=== PATIENT | male | born 1975 | race Caucasian/White ===

== ENCOUNTER → 2018-02-07 | Outpatient (CLI) | payer BC ==
[~2018-02-07] MED LIST: AMIT-104 PO; CHOL10005 PO; DICY20TA70 PO; IBUPROFEN; LACT1CAP6 PO; MULT-1335 PO; OMEG-11 PO; PAN20 PO; PANT40TA65 PO; [UNRECOGNIZED DRUG - CODE] PO
--- NOTE | 2018-02-07 15:43 | RADIOLOGY IMAGING REPORT ---
FACILITY: [facility] PATIENT NAME: Vinny Carrasco : 1975 MR: [id number] V: [id number] EXAM DATE: ORDERING PHYSICIAN: DANA GUZMÁN TECHNOLOGIST: [place] [facility] [place] Vinny Carrasco : 1975 Visit/Account:[id number] Date of Sevice: 02/07/2018 TESTICULAR HISTORY: Right scrotal pain and swelling COMPARISON: None. FINDINGS: Testes: The right testicle measures 5.1 x 2.6 x 2.8 cm. The left measures 4.7 x 2.7 x 3.3 cm. Symme tric and unremarkable blood flow documented by color and Duplex Doppler ultrasound. Epididymides: The head epididymis on the right measures 1.4 cm and on the left 1.8 cm. There is a 6. 3 mm cyst in the head of the epididymis on the left Blood flow is unremarkable in each epididymis by color Doppler ultrasound. Hydrocele: Small on the right Varicocele: Possible small varicocele on the right in location of patient's pain IMPRESSION: Small right hydrocele and possible small right varicocele 6.3 mm cyst head of the epididymis on the left Report Dictated By: Diana Hammonds MD at 02/07/2018 3:36 PM Report E-Signed By: Diana Hammonds MD at 02/07/2018 3:38 PM WSN:[email or web address]
== END ==
LOC: US 14:02
PROVIDERS: ATTEND Physician Assistant Medical
DX: N43.3 Hydrocele, unspecified (principal); N50.3 Cyst of epididymis; I86.1 Scrotal varices
CPT/HCPCS: 76870

== ENCOUNTER 2018-03-27 00:39 | Day surgery (SDC) | payer BC ==
[~2018-03-27] VITALS: Ht 180.3 cm; Wt 105.7 kg
[~2018-03-27 00:39] MED LIST changes: +ENZY1CAP3 PO; +MILK140C3 PO; +PSYL283P7 PO; +TURM1TAB PO
[2018-03-27] MEDS ORDERED: ROCURONIUM BROM 10 MG/ML 10 ML ONE (08:24)
[2018-03-27] MEDS ORDERED: fentaNYL CITR 100 MCG/2 ML AMP ONE ×3 (08:24→11:48)
[2018-03-27] MEDS ORDERED: PROPOFOL EMUL(*) 10MG/ML 20 ML 20 ML ONE (08:24)
[2018-03-27] MEDS ORDERED: ONDANSETRON 4 MG/2 ML VIAL ONE (08:24)
[2018-03-27] MEDS ORDERED: LIDOCAINE MPF 1% 5 ML VIAL ONE (08:24)
[2018-03-27] MEDS ORDERED: DEXAMETHASONE SOD PHOS 10MG/ML ONE (08:24)
[2018-03-27] MEDS ORDERED: MIDAZOLAM 2 MG/2 ML VIAL ONE (08:25)
[2018-03-27 08:33] LABS: PLATELET COUNT, AUTOMATED 260 K/uL (150-450)
[2018-03-27 08:40] VITALS: BP 145/89
[2018-03-27] MEDS ORDERED: LIDOCAINE/SOD BICARB 8.4% SYR ID ONE (08:50)
[2018-03-27] MEDS ORDERED: FAMOTIDINE 20 MG TAB PO ONE (08:50)
[2018-03-27] MEDS ORDERED: INDOCYANINE GREEN 25 MG VIAL IVP ONE (08:50)
[2018-03-27] MEDS ORDERED: AMPICILLIN/SULBACT (*) 3 GM VL 3 GM in NS(*) 0.9% 100 ML BAG 100 ML IVPB ONE (08:50)
[2018-03-27] MEDS ORDERED: NORMOSOL R SOLN(*) 1000 ML BAG 1,000 ML IV PRN (08:50)
[2018-03-27] MEDS ORDERED: MIDAZOLAM 2 MG/2 ML VIAL IVP PRN (08:50)
[2018-03-27] MEDS ORDERED: SUGAMMADEX SOD 200 MG/2 ML SDV ONE (09:05)
[2018-03-27] MEDS ORDERED: ROPIVACAINE 0.5% 20 ML VIAL ONE (09:28)
[2018-03-27] MEDS ORDERED: DOCU-416 PO (11:23)
[2018-03-27] MEDS ORDERED: OXYC-854 PO (11:23)
--- NOTE | 2018-03-27 11:28 | Short(Outpt) Discharge Summary ---
Discharge Summary Reason for Hosp/Final Diag: (1) Biliary dyskinesia Status: Chronic Hospital Course & Plan: Robotic justino completed without problems. Departure Discharge to: Home, Self Care Discharge Instructions Home Meds Active Scripts Docusate Sodium (COLACE) 100 Mg Capsule, 1 CAP PO BID, #30 CAP 0 Refills TAKE WITH A FULL GLASS OF WATER Prov:YAYO MAYFIELD MD 03/27/18 Oxycodone Hcl/Acet 5/325 Mg (ENDOCET 5-325 TABLET) 1 Each Tablet, 1-2 TAB PO Q4H Y for PAIN, #30 TAB 0 Refills Prov:YAYO MAYFIELD MD 03/27/18 Reported Medications Psyllium Husk/Aspartame (Metamucil Sugar-Free Powder) 3.4 Gram/5.8 Gram Powder, 3.4 GM PO DAILY Y for CONSTIPATION 03/20/18 Jackie/Cell/Lipas/Malt/Prt/Lac/in (Digestive Enzymes Capsule) 220 Mg Capsule, 220 MG PO DAILY 03/20/18 Turm/Ging/Trevor/Yuc/Diego/Tim/Hor (TUMERSAID TABLET) 1 Each Tablet, 1 EACH PO QODAY 03/20/18 Milk Thistle Fruit Extract (MILK THISTLE) 140 Mg Capsule, 140 MG PO QDAY, CAPSULE 03/11/18 Cholecalciferol (Vitamin D3) (VITAMIN D3) 1,000 Unit Tablet, 4000 UNIT PO, TAB 09/10/17 Lactobacillus Combination No.4 (PROBIOTIC) 1 Each Capsule, 1 EACH PO, CAPSULE 09/10/17 Multivitamin With Minerals (MULTIPLE VITAMIN) 1 Each Tablet, 1 EACH PO, TAB 09/10/17 Follow up Referrals: General Surgery - 04/14/18 @ Surgery, General with Yayo Mayfield Md You have a follow up appointment scheduled with Dr. Mayfield on 04/14/18, at 11:15am. Diet: Regular Activity: As Tolerated Special Instructions: You may remove the white surgical dressings on 03/29/18, then you can shower. After showering, leave the incisions open to air but leave the steristrips in place until they fall off on their own. Do not immerse the incisions for 2 weeks. YAYO MAYFIELD MD March 27, 2018 11:28
[2018-03-27] MEDS ORDERED: ACETAMINOPHEN(*)1000 MG/100 ML 100 ML IVPB ONE (11:29)
--- NOTE | 2018-03-27 11:34 | Post Operative Progress Note ---
Post Operative Progress Note Date: March 27, 2018 Time: 11:28 Surgeon: Tamiko Dictation number: [id number] Anesthesia: GETA by Dr. Curran Pre-Op Diagnosis: Biliary Dyskinesia Post-Op Diagnosis: ALANNA Findings: None Procedure(s): Robotic cholecystectomy Specimen Removed:(May be N/A): None Complications: None Fluids: See anesthesia record Estimated Blood Loss: Minimal Date OP Note Dictated: March 27, 2018 Time OP Note Dictated: 11:28 YAYO MAYFIELD MD March 27, 2018 11:34
[2018-03-27] MEDS ORDERED: PROMETHAZINE 25 MG/ML 1 ML AMP ONE (11:53)
[2018-03-27] MEDS ORDERED: KETOROLAC 30 MG/ML VIAL ONE (11:53)
[2018-03-27 12:30] VITALS: BP 149/97
[2018-03-27 12:43] VITALS: BP 145/119
[2018-03-27 12:44] VITALS: BP 174/121
[2018-03-27 13:00] VITALS: BP 160/108
[2018-03-27 13:15] VITALS: BP 158/100
--- NOTE | 2018-03-27 17:42 | OPERATIVE REPORT 1 ---
EVENT DATE: March 27, 2018 SURGEON: Kamron Morrison MD ANESTHESIOLOGIST: Jorge Curran MD ANESTHESIA: General endotracheal anesthesia. PREOPERATIVE DIAGNOSIS Biliary dyskinesia. POSTOPERATIVE DIAGNOSIS Biliary dyskinesia. PROCEDURE PERFORMED Robotic cholecystectomy. COMPLICATIONS None. CONDITION Stable. BLOOD LOSS Minimal. INDICATIONS This is a 42-year-old gentleman who has been dealing with chronic abdominal pain , and on workup, the only potentially contributing finding was a low gallbladder ejection fraction on HIDA scan. He was requesting to have his gallbladder removed to see if this would help improve his chronic GI symptoms. DESCRIPTION OF PROCEDURE The patient was brought to the operating room and placed supine on the operating table. General endotracheal anesthesia was administered, and his abdomen was prepped and draped in a sterile fashion. Timeout was completed. I injected the infraumbilical skin with 0.5% ropivacaine plain. I made a curvilinear smiley face type incision in the infraumbilical rim and dissected down through the dermis and subcutaneous fat. I made a vertical incision in the midline fascia, grasped the fascial edges with Mayra clamps, and entered the peritoneal cavity with my finger. I placed two interrupted 0 Vicryl sutures transversely through the vertical fascial defect, one cephalad and one caudad. I then inserted a 12 mm Cyndee-type robotic port through this wound and secured it placed with sutures. I insufflated the abdomen to a pressure of 15 mmHg, inserted the robotic camera, and under direct visualization, I placed an 8 mm port in the right mid abdomen and two 8 mm ports in the left abdomen, one in the left mid abdomen above the level of the umbilicus and one in the left anterior axillary line just below the costal margin. I then docked and targeted the robot, inserted the appropriate instruments, and then scrubbed out and went to the console. I then grasped the fundus of the gallbladder and retracted it towards the patient's right shoulder. The infundibulum was located and retracted towards the patient's right hip. I used the hook electrocautery and divided the peritoneum overlying the infundibulum and up both the medial and lateral aspects of the gallbladder. I stripped the peritoneum down and used Firefly to help identify the cystic duct as well as the common duct, and I used this repeatedly throughout this portion of the dissection. I cleaned off the cystic duct and artery circumferentially, clipped the artery and duct proximally and distally. In fact, I clipped the distal portion of the cystic duct with three clips and then divided the artery between clips and divided the duct between clips. I then divided the posterior attachments of the gallbladder, it from the gallbladder fossa, then placed the gallbladder in a surgical specimen retrieval bag, and removed it from the abdomen through the umbilical port site. I irrigated and dried the right upper quadrant, inspected the gallbladder fossa as well as the cystic duct and artery stumps for any bleeding or bile leak, and there was none. I had all of the robotic instruments removed, undocked the robot, desufflated the abdomen, and removed the ports. I closed the midline fascia with an 0 Vicryl [id number] suture and then tied all three of these down with good reapproximation of the fascial edges and no remaining fascial defect. I then closed the skin at each port site with 4-0 Monocryl subcuticular sutures. The skin was cleaned and dried, and Steri-Strips were applied, followed by sterile surgical dressings. The patient was awakened and extubated in the operating room and transported to the recovery room in stable condition having tolerated the procedure without any apparent problems. AMI
== END 2018-03-27 12:30 | disposition home or self-care (01) ==
LOC: OR 00:39
PROVIDERS: ATTEND Surgery
DX: K82.8 Other specified diseases of gallbladder (principal)
CPT/HCPCS: 36415; 47562; 85025; 88304; J0131; J0295; J1100; J1885; J2001; J2250; J2405; J2550; J2704; J2795; J3010; J7050; S2900

== ENCOUNTER → 2018-09-01 | Outpatient (CLI) | payer BC ==
[~2018-09-01] MED LIST changes: +DOCU-416 PO; +MILK THISTLE140 M1 PO; -MILK140C3 PO; +OXYC-854 PO
--- NOTE | 2018-09-02 11:44 | RADIOLOGY IMAGING REPORT ---
FACILITY: [facility] [place] PATIENT NAME: Vinny Carrasco : 1975 MR: [id number] V: [id number] EXAM DATE: ORDERING PHYSICIAN: MICHAEL GARCIA TECHNOLOGIST: Location: [facility] Patient: Vinny Carrasco : 1975 Visit/Account:[id number] Date of Sevice: 09/01/2018 ABDOMEN PELVIS ESWL CYSTO W/O HISTORY: Kidney stones TECHNIQUE: Axial images acquired through the abdomen/pelvis. Coronal and sagittal reformatting also performed. No IV contrast administered. Dose Lowering Technique One of the following dose optimization techniques was utilized in the performance of this exam: Autom ated exposure control; adjustment of the mA and/or kV according to the patient's size; or use of an i terative reconstruction technique. Specific details can be referenced in the facility's radiology C T exam operational policy. COMPARISON: CT abdomen and pelvis September 03, 2017 FINDINGS: Visualized lung bases: Negative. Hepatobiliary: There are postsurgical changes from a cholecystectomy Spleen: Negative. Adrenals: Negative. Pancreas: There is a tiny punctate calcification in the head of the pancreas Kidneys ureters and bladder: There is no demonstration of urolithiasis, hydronephrosis or hydroureter at this time Genitalia: Negative. GI: Negative. Vessels/spaces/nodes: Multiple shotty retroperitoneal lymph nodes appear similar to the prior study. Periportal lymph nodes also appear similar Bones/soft tissues: There is an umbilical hernia containing fat. There are mild spondylotic changes of the thoracolumbar spine Additional findings: None pertinent. IMPRESSION: There is no demonstration of urolithiasis hydronephrosis or hydroureter at this time Post surgical changes from a cholecystectomy Additional chronic findings as described Report Dictated By: Diana Hammonds MD at 09/01/2018 2:03 PM Report E-Signed By: Diana Hammonds MD at 09/01/2018 4:02 PM WSN:[email or web address]
== END ==
LOC: CT 08-26 00:24
PROVIDERS: ATTEND Urology
DX: K42.9 Umbilical hernia without obstruction or gangrene (principal); Z90.49 Acquired absence of other specified parts of digestive tract; K86.89 Other specified diseases of pancreas; M47.895 Other spondylosis, thoracolumbar region

== ENCOUNTER → 2018-09-01 | Outpatient (CLI) | payer BC ==
--- NOTE | 2018-09-01 14:53 | RADIOLOGY IMAGING REPORT ---
[place] [facility] [place] Vinny Carrasco : 1975 MR: [id number] V: [id number] EXAM DATE: ORDERING PHYSICIAN: KAYLEN CERRATO TECHNOLOGIST: [place] [facility] [place] [facility] [place] Vinny Carrasco : 1975 Visit/Account:[id number] Date of Sevice: 09/01/2018 Exam type: HIPS BILATERAL History: Bilateral hip pain x1 year, no known injury Comparison: None FINDINGS: AP views of the pelvis and abducted views of both hips demonstrates no evidence of acute fracture, dislocation, significant arthritic change, lytic or blastic bone lesion. IMPRESSION: 1. No osteoarticular abnormality the hips are seen Report Dictated By: Diana Hammonds MD at 09/01/2018 2:47 PM Report E-Signed By: Diana Hammonds MD at 09/01/2018 2:49 PM WSN:[email or web address]
--- NOTE | 2018-09-01 14:58 | RADIOLOGY IMAGING REPORT ---
FACILITY: [facility] - [place] PATIENT NAME: Vinny Carrasco : 1975 MR: [id number] V: [id number] EXAM DATE: [id number] ORDERING PHYSICIAN: KAYLEN CERRATO TECHNOLOGIST: Location: [facility] Patient: Vinny Carrasco : 1975 Visit/Account:[id number] Date of Sevice: 09/01/2018 Exam type: LUMBAR SPINE 2 OR 3 VIEW History: Back pain x1 year Comparison: September 05, 2010 and August 11, 2010. 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 There are four lumbar-type vertebral bodies present and a sacralized transitional segment. Anterior osteophytes ar e seen throughout the lumbar spine which have increased when compared to the prior study. There is m ild loss of height of the L1 vertebral body and T 13 vertebral body which also has increased in the i nterim. No subluxations are identified. IMPRESSION: 1. Transitional lumbar segmentation as described above with increasing spondylotic changes when comp ared to August 11, 2010 Report Dictated By: Diana Hammonds MD at 09/01/2018 2:49 PM Report E-Signed By: Diana Hammonds MD at 09/01/2018 2:54 PM WSN:[email or web address]
--- NOTE | 2018-09-01 16:08 | RADIOLOGY IMAGING REPORT ---
[place] [facility] [place] NAME: Vinny Carrasco : 1975 MR: [id number] V: [id number] EXAM DATE: ORDERING PHYSICIAN: KAYLEN CERRATO TECHNOLOGIST: Location: [facility] - [place] Patient: Vinny Carrasco : 1975 Visit/Account:[id number] Date of Sevice: 09/01/2018 ABDOMEN PELVIS ESWL CYSTO W/O HISTORY: Kidney stones TECHNIQUE: Axial images acquired through the abdomen/pelvis. Coronal and sagittal reformatting also performed. No IV contrast administered. Dose Lowering Technique One of the following dose optimization techniques was utilized in the performance of this exam: Autom ated exposure control; adjustment of the mA and/or kV according to the patient's size; or use of an i terative reconstruction technique. Specific details can be referenced in the facility's radiology C T exam operational policy. COMPARISON: CT abdomen and pelvis September 03, 2017 FINDINGS: Visualized lung bases: Negative. Hepatobiliary: There are postsurgical changes from a cholecystectomy Spleen: Negative. Adrenals: Negative. Pancreas: There is a tiny punctate calcification in the head of the pancreas Kidneys ureters and bladder: There is no demonstration of urolithiasis, hydronephrosis or hydroureter at this time Genitalia: Negative. GI: Negative. Vessels/spaces/nodes: Multiple shotty retroperitoneal lymph nodes appear similar to the prior study. Periportal lymph nodes also appear similar Bones/soft tissues: There is an umbilical hernia containing fat. There are mild spondylotic changes of the thoracolumbar spine Additional findings: None pertinent. IMPRESSION: There is no demonstration of urolithiasis hydronephrosis or hydroureter at this time Post surgical changes from a cholecystectomy Additional chronic findings as described Report Dictated By: Diana Hammonds MD at 09/01/2018 2:03 PM Report E-Signed By: Diana Hammonds MD at 09/01/2018 4:02 PM WSN:[email or web address]
== END ==
LOC: RAD 12:21
PROVIDERS: ATTEND Family Medicine
DX: K42.9 Umbilical hernia without obstruction or gangrene (principal); M47.819 Spondylosis without myelopathy or radiculopathy, site unspecified; K86.89 Other specified diseases of pancreas; Z90.49 Acquired absence of other specified parts of digestive tract; Z87.442 Personal history of urinary calculi
CPT/HCPCS: 72100; 73522; 74176

== ENCOUNTER 2018-09-05 13:31 | Outpatient (RCR) | payer BC | END 2018-10-10 | LOC: MRI 13:31 → EDSTATUS 13:31 | PROVIDERS: ATTEND Family Medicine | DX: M54.5 Low back pain (principal); M25.551 Pain in right hip; M25.552 Pain in left hip | CPT/HCPCS: 72148 ==